=== PATIENT | female | born 1975 | race Caucasian/White ===

== ENCOUNTER 2019-09-16 23:50 | Emergency (ER) | payer OTHER ==
[2019-09-16 23:57] VITALS: BP 120/65; PULSE 72; TEMP 98.6; BMI 41.3
[2019-09-16] MEDS ORDERED: FAMOTIDINE 20 MG/50 ML IVPB 20 MG/50 ML MG IVPB ONE (23:58)
[2019-09-16] MEDS ORDERED: MAG HYDROX/AL HYDROX/SIMETH 30 ML UNIT-DOSE CUP PO ONE (23:58)
--- NOTE | 2019-09-16 23:58 | PDOC ---
History of Present Illness - General Chief Complaint: Pain, Acute Stated Complaint: CHEST PAIN X 3 DAYS Time Seen by Provider: 09/16/19 23:57 - History of Present Illness Initial Comments: 09/17/19 07:17 chest pain Is this a multiple visit Asthma Patient?: No Timing/Duration: 24 hours Severity: moderate Modifying Factors: worse with: medication, movement Associated Symptoms: denies: cough, fever/chills Past History - Past Medical History Allergies/Adverse Reactions: Allergies Allergy/AdvReac Type Severity Reaction Status Date / Time oseltamivir [From Tamiflu] Allergy Verified 09/16/19 23:52 Home Medications: Ambulatory Orders Famotidine [Pepcid] 20 mg PO BID #28 tablet 09/17/19 Omeprazole 40 mg PO DAILY #60 tablet. 09/17/19 Asthma: No (gets wheezing in the setting of lung infections) COPD: No Diabetes: No HTN: No Comment:: 09/17/19 07:18 gerd - Immunization History Td Vaccination: Yes Immunization Up to Date: Yes - Psycho Social/Smoking Cessation Hx Smoking Status: Yes Smoking History: Never smoked Years of Tobacco Use: 5 Have you smoked in the past 12 months: No Number of Cigarettes Smoked Daily: 5 Information on smoking cessation initiated: No Hx Alcohol Use: No Drug/Substance Use Hx: No Substance Use Type: None Review of Systems - Review of Systems All Other Systems: Reviewed and Negative *Physical Exam - Vital Signs Last Vital Signs Temp Pulse Resp BP Pulse Ox 98.6 F 72 15 120/65 97 09/16/19 23:53 09/16/19 23:53 09/16/19 23:53 09/16/19 23:53 09/16/19 23:53 - Physical Exam General Appearance: Yes: Nourished, Appropriately Dressed Neck: negative: Lymphadenopathy (L) Respiratory/Chest: positive: Lungs Clear Cardiovascular: positive: Regular Rhythm Lymphatic: negative: Adenopathy Musculoskeletal: positive: Other Extremity: positive: Normal Capillary Refill Integumentary: positive: Normal Color Neurologic: positive: Fully Oriented Medical Decision Making - Medical Decision Making 09/17/19 07:19 cp c/w gerd (worsening of her underlying gerd, worse with lying down) PERC- cxr, negative, as read by me, referred to radology for definitive review antacids analgesia GI fu Discharge - Discharge Information Problems reviewed: Yes Clinical Impression/Diagnosis: GERD (gastroesophageal reflux disease) Qualifiers: Esophagitis presence: esophagitis presence not specified Qualified Code(s): K21.9 - Gastro-esophageal reflux disease without esophagitis Condition: Stable Disposition: HOME - Additional Discharge Information Prescriptions: Famotidine [Pepcid] 20 mg PO BID #28 tablet Omeprazole 40 mg PO DAILY #60 tablet.dr - Follow up/Referral Referrals: Saba Cardenas MD [Staff Physician] - Call tomorrow - Patient Discharge Instructions - Post Discharge Activity Work/Back to School Note: Back to Work
[2019-09-17] MEDS ORDERED: FAMOTIDINE 20 MG/50 ML IVPB 20 MG/50 ML MG IVPB ONE (00:18)
--- NOTE | 2019-09-17 10:44 | EKG ---
Test Reason : Blood Pressure : / mmHG Vent. Rate : 067 BPM Atrial Rate : 067 BPM P-R Int : 120 ms QRS Dur : 076 ms QT Int : 388 ms P-R-T Axes : 007 033 011 degrees QTc Int : 409 ms NORMAL SINUS RHYTHM NORMAL ECG Confirmed by MD MIKE, JANET ([id number]) on 09/17/2019 10:44:16 AM Referred By: VIDA LANDA Confirmed By:JANET MCKEON MD
== END 2019-09-17 01:52 | disposition home or self-care (01) ==
LOC: FER 23:50
PROC: 3E033GC Introduction of Other Therapeutic Substance into Peripheral Vein, Percutaneous Approach (ICD-10-PCS; principal; 2019-09-16)
DX: K21.9 Gastro-esophageal reflux disease without esophagitis (principal); Z88.8 Allergy status to other drugs, medicaments and biological substances; Z72.0 Tobacco use
CPT/HCPCS: 71046-TC-FY; 93005; 99281-25

== ENCOUNTER 2019-11-29 14:10 | Emergency (ER) | payer OTHER ==
[2019-11-29] MEDS ORDERED: ALBUTEROL SO4 2.5/IPRATROPIUM 0.5 INH SOL 3 ML VIAL.NEB. NEB ONE ×2 (14:29→14:44)
[2019-11-29] MEDS ORDERED: IBUPROFEN 600 MG TABLET (FP) PO ONE ×2 (14:29→14:44)
--- NOTE | 2019-11-29 14:29 | PDOC ---
History of Present Illness - General Chief Complaint: Respiratory Stated Complaint: COUGH, SORE THROAT History Source: Patient Exam Limitations: No Limitations - History of Present Illness Initial Comments: 11/29/19 14:26 43-year-old female no past medical history here today complaining of cough nasal congestion and hoarse voice. Patient states that she had a similar illness several months ago thought it was the flu with body aches fevers and sore throat which subsequently resolved. And approximately 5 days ago she started feeling cough congestion and hoarseness again today denies any fevers but does report body aches. Has been using herbal remedies and over-the- counter NyQuil in the evenings. Today she was coughing so hard she felt she may have had some dark blood-streaked sputum. Denies any significant fever no nausea no vomiting no diarrhea no rash no recent travel Past History - Past Medical History Allergies/Adverse Reactions: Allergies Allergy/AdvReac Type Severity Reaction Status Date / Time oseltamivir [From Tamiflu] Allergy Verified 11/29/19 14:12 Home Medications: Ambulatory Orders Albuterol Sulfate Inhaler - [Ventolin HFA Inhaler -] 2 inh PO Q4H PRN #1 inh MDD 6 11/29/19 Asthma: No (gets wheezing in the setting of lung infections) COPD: No Diabetes: No GI Disorders: Yes (GERD) HTN: No - Immunization History Td Vaccination: Yes Immunization Up to Date: Yes - Psycho Social/Smoking Cessation Hx Smoking Status: Yes Smoking History: Never smoked Years of Tobacco Use: 5 Have you smoked in the past 12 months: No Number of Cigarettes Smoked Daily: 5 Information on smoking cessation initiated: No Hx Alcohol Use: No Drug/Substance Use Hx: No Substance Use Type: None Review of Systems - Review of Systems Constitutional: Yes: Chills. No: Fever HEENTM: Yes: Nose Congestion, Throat Pain. No: Eye Pain, Blurred Vision Respiratory: Yes: Cough, Productive cough. No: Shortness of Breath Cardiac (ROS): No: Chest Pain Musculoskeletal: Yes: Back Pain, Muscle Pain All Other Systems: Reviewed and Negative *Physical Exam - Vital Signs Last Vital Signs Temp Pulse Resp BP Pulse Ox 97.8 F 82 18 120/65 96 11/29/19 14:10 11/29/19 14:10 11/29/19 14:10 11/29/19 14:10 11/29/19 14:10 - Physical Exam 11/29/19 14:27 Awake alert no acute distress lungs are clear bilaterally heart is regular 30 murmurs rubs or gallops abdomen is soft nontender extremities are warm well perfused skin is warm and dry no rash. Medical Decision Making - Medical Decision Making 11/29/19 14:28 43-year-old female here with viral syndrome with laryngitis and likely pharyngitis will obtain x-ray to rule out pneumonia. Plan bronchodilator for likely bronchitis Motrin for her pain and a decongestant 11/29/19 15:42 pt cxr negative for pneumonia. improved following duoneb. and motrin. will given work note, rx for inhaler to use at home. otc medication. Discharge - Discharge Information Problems reviewed: Yes Clinical Impression/Diagnosis: Bronchitis, Laryngitis Condition: Improved Disposition: HOME - Admission No - Additional Discharge Information Prescriptions: Albuterol Sulfate Inhaler - [Ventolin HFA Inhaler -] 2 inh PO Q4H PRN #1 inh MDD 6 PRN Reason: Wheezing - Follow up/Referral - Patient Discharge Instructions Patient Printed Discharge Instructions: DI for Acute Bronchitis Additional Instructions: you should drink plenty of fluids, get plenty of rest. use albuterol inhaler 2 puffs every 4 hours as needed for cough or wheezing. you can take over the counter cough and cold medication as directed. return for shortness of breath, vomiting, confusion, fever not improved with tylenol or ibuprofen or any concerns. - Post Discharge Activity Work/Back to School Note: Back to Work
[2019-11-29 14:30] VITALS: BP 120/65; PULSE 82; TEMP 97.8; BMI 37.8
== END 2019-11-29 15:45 | disposition home or self-care (01) ==
LOC: FER 14:10
PROC: 3E0F7GC Introduction of Other Therapeutic Substance into Respiratory Tract, Via Natural or Artificial Opening (ICD-10-PCS; principal; 2019-11-29)
DX: J40 Bronchitis, not specified as acute or chronic (principal); J04.0 Acute laryngitis; Z88.8 Allergy status to other drugs, medicaments and biological substances
CPT/HCPCS: 71046-TC-FY; 99283-25

== ENCOUNTER 2020-09-15 14:40 | Emergency (ER) | payer OTHER ==
[2020-09-15 14:57] VITALS: BP 129/73; PULSE 72; TEMP 98.8; BMI 41.2
== END 2020-09-15 17:24 | disposition home or self-care (01) ==
LOC: FER 14:40
DX: M25.561 Pain in right knee (principal); M25.511 Pain in right shoulder; M25.562 Pain in left knee
CPT/HCPCS: 73030-TC-RT-FY; 73562-TC-LT-FY; 73562-TC-RT-FY; 99285-25

== ENCOUNTER 2020-09-29 11:14 | Emergency (ER) | payer OTHER | END 2020-09-29 12:07 | disposition home or self-care (01) | LOC: JVIRT 11:14 | DX: Z11.59 Encounter for screening for other viral diseases (principal) | CPT/HCPCS: C9803; Q3014-GT; U0003 ==

== ENCOUNTER 2024-03-03 07:32 | Emergency (ER) | payer OTHER ==
[2024-03-03 07:36] VITALS: RESP 18; BMI 41.5
[2024-03-03] MEDS: ACETAMINOPHEN 1000 MG/100 ML BAG IVPB ONE (07:55)
[2024-03-03] MEDS: SODIUM CHLORIDE 0.9% 500 ML INFUS.BAG IV ONE ×2 (07:57→08:54)
[2024-03-03] MEDS ORDERED: ACETAMINOPHEN INJECTION 100 ML IVPB ONE (07:58)
[2024-03-03 08:30] LABS: HEMATOCRIT 35.1 % (32.4-45.2); HEMOGLOBIN 10.9 G/dL (10.7-15.3); MCH 24.9 pg (25.7-33.7); MEAN CELL VOLUME 80.5 fl (80-96); MEAN PLT VOLUME 8.2 fl (7.5-11.1); PLATELET COUNT 393.1 10^3/uL (134-434); RBC 4.36 10^6/uL (3.60-5.2); RDW 16.7 % (11.6-15.6); WHITE BLOOD COUNT 15.8 10^3/uL (4.0-10.8)
[2024-03-03 08:54] LABS: ALBUMIN 3.8 g/dl (3.4-5.0); BILIRUBIN,TOTAL 0.5 mg/dl (0.2-1); CALCIUM 8.6 mg/dl (8.5-10.1); CREATININE 0.7 mg/dl (0.6-1.3); POTASSIUM 4.2 mmol/L (3.5-5.1); TOT PROT 6.4 g/dl (6.4-8.2)
[2024-03-03 09:10] VITALS: BP 126/69; PULSE 89; TEMP 100.5
[2024-03-03] MEDS ORDERED: ALBUTEROL SO4 2.5/IPRATROPIUM 0.5 INH SOL 3 ML VIAL.NEB. NEB ONE (09:10)
[2024-03-03] MEDS: ALBUTEROL SO4 2.5/IPRATROPIUM 0.5 INH SOL 3 ML VIAL.NEB. NEB ONE (09:13)
[2024-03-03 09:25] LABS: PLATELET ESTIMATE ADEQUATE
[2024-03-03 10:47] LABS: THROAT:GRP A STREP NOT DETECTED (NOTDETECTED)
== END 2024-03-03 10:10 | disposition home or self-care (01) ==
LOC: FER 07:32
PROC: 3E030NZ Introduction of Analgesics, Hypnotics, Sedatives into Peripheral Vein, Open Approach (ICD-10-PCS; principal; 2024-03-03)
PROC: 3E0F7GC Introduction of Other Therapeutic Substance into Respiratory Tract, Via Natural or Artificial Opening (ICD-10-PCS; 2024-03-03)
DX: J18.9 Pneumonia, unspecified organism (principal); R50.9 Fever, unspecified; R05.9 Cough, unspecified; R09.81 Nasal congestion; M79.10 Myalgia, unspecified site; R11.2 Nausea with vomiting, unspecified; R06.02 Shortness of breath; R53.81 Other malaise; H92.09 Otalgia, unspecified ear; Z20.822 Contact with and (suspected) exposure to COVID-19
CPT/HCPCS: 0241U-QW; 36415; 71046-TC-FY; 80053; 85025; 87651; 99284-25; J0131

== ENCOUNTER 2024-03-06 12:03 | Emergency (ER) | payer OTHER ==
[2024-03-06 12:37] VITALS: BP 122/71; PULSE 66; RESP 18; TEMP 97; BMI 41.5
== END 2024-03-06 13:30 | disposition home or self-care (01) ==
LOC: FER 12:03
DX: R05.9 Cough, unspecified (principal)
CPT/HCPCS: 99283-25